=== PATIENT | male | born 2000 | race Caucasian/White ===

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

== ENCOUNTER 2021-03-06 12:04 | Emergency (ER) | payer SELFPAY ==
[~2021-03-06] VITALS: Ht 170.2 cm; Wt 75.0 kg
[2021-03-06] MEDS ORDERED: HYDROCODONE/ACETAMINOPHEN 5/325MG TABLET PO ONE (13:00)
[2021-03-06 13:16] VITALS: BP 103/50
[2021-03-06] MEDS ORDERED: NAPR-681 MT (15:07)
[2021-03-06] MEDS ORDERED: HYDR-4001 MT (15:07)
== END 2021-03-06 15:31 | disposition home or self-care (01) ==
LOC: ER 12:04
DX: S62.606A Fracture of unspecified phalanx of right little finger, initial encounter for closed fracture (principal); W18.39XA Other fall on same level, initial encounter; Y93.89 Activity, other specified; Y92.89 Other specified places as the place of occurrence of the external cause; Y99.8 Other external cause status
CPT/HCPCS: 29125; 73110; 73130; 99284

== ENCOUNTER 2023-09-07 20:36 | Emergency (ER) | payer SELFPAY ==
[~2023-09-07] VITALS: Ht 170.2 cm; Wt 73.4 kg
[~2023-09-07 20:36] MED LIST: HYDR-4001 MT; NAPR-681 MT
[2023-09-07 20:58] VITALS: O2SAT 99
[2023-09-07] MEDS ORDERED: ACETAMINOPHEN 325MG TABLET PO ONE (22:45)
[2023-09-07] MEDS ORDERED: ACETAMINOPHEN 325MG TABLET PO NR (23:15)
[2023-09-08] MEDS ORDERED: CYCL10TA21 MT (00:20)
[2023-09-08] MEDS ORDERED: IBUP-2030 MT (00:20)
[2023-09-08 01:10] VITALS: BP 112/58; PULSE 74; RESP 12; TEMP 97.6
[2023-09-08] MEDS: OXYCODONE HCL/ACETAMINOPHEN 5/325MG TABLET PO ONE (01:10)
== END 2023-09-08 01:15 | disposition home or self-care (01) ==
LOC: ER 20:36
DX: R51.9 Headache, unspecified (principal); M54.2 Cervicalgia; R07.9 Chest pain, unspecified
CPT/HCPCS: 71250; 73552; 73562; 74176; 99284